=== PATIENT | male | born 1990 | race Caucasian/White ===

== ENCOUNTER 2016-06-24 01:15 | Emergency (ER) | payer OTHER ==
[~2016-06-24] VITALS: Ht 188 cm; Wt 85.9 kg
[2016-06-24 01:18] VITALS: TEMP 37.1; O2SAT 96; Ht 188 cm; Wt 85.9 kg
[2016-06-24 02:07] LABS: BUN/CREATININE RATIO 15.9 (10-20); CALCIUM 8.5 mg/dl (8.5-10.1); CREATININE 0.94 mg/dl (0.60-1.40); POTASSIUM 3.4 mmol/L (3.5-5.1)
[2016-06-24 06:31] VITALS: BP 117/83; PULSE 81; O2SAT 97
--- NOTE | 2016-06-27 19:30 | EMERGENCY ROOM VISIT NOTE ---
ED Visit Note First contact with patient: 01:18 CHIEF COMPLAINT: Altered mental status from Alcohol overdose HISTORY OF PRESENT ILLNESS: This 25-year-old male patient presents to the emergency department via ambulance for evaluation of altered mental status, presumably from alcohol intoxication. The patient was evidently on a local [place] for about one hour. The patient did not disembark from the bus, and the business team leader became concerned. EMS was contacted, the patient now presents to the emergency room for evaluation. He does admit to drinking alcohol tonight. No drug use or pills. He does not report pain or injury. REVIEW OF SYSTEMS: Review of systems was somewhat limited secondary to patient' s presumed alcohol intoxication status. Review of systems was performed to the best of our ability and reperformed as the patient began to sober up. All other systems were reviewed and are negative. ALLERGIES: See EMR MEDICATIONS: See EMR PMH: No chronic medical disease SOCIAL HISTORY: Student and lives locally PHYSICAL EXAM VITALS: Vitals are noted on the nurse's note and reviewed by myself. Vital signs stable. GENERAL: White male, who is in no acute distress and resting comfortably. Patient is visibly altered and smells of alcohol. HEAD: Normocephalic atraumatic. EARS: External ear normal. External auditory canals clear, tympanic membranes pearly torres without erythema or effusion bilaterally. EYES: Pupils equal round and reactive to light and accommodation. Conjunctivae without injection, sclerae without icterus. Extraocular movements intact. NOSE: Patent, turbinates without inflammation or discharge. MOUTH: Mucous membranes moist. Tonsils are not enlarged. Pharynx without erythema, blood, vomitus, or exudate. Uvula midline. Airway patent. NECK: Supple without nuchal rigidity. No lymphadenopathy. Cervical spine is nontender. HEART: Regular rate and rhythm without murmurs gallops or rubs. LUNGS: Clear to auscultation bilaterally without wheezes, rales or rhonchi. No retractions or accessory muscle use. ABDOMEN: Positive normal bowel sounds x 4. Soft, nontender, without masses or organomegaly. No guarding or rebound tenderness. MUSCULOSKELETAL: No muscle atrophy, erythema, or edema noted. Gross motor function intact to all extremities. NEURO: Patient was alert to person but not place or time. They appear with altered mental status. SKIN: The skin was without rashes, erythema, edema, or bruising. No Tenting of the skin. EMERGENCY DEPARTMENT COURSE: Physical exam and history was performed. Nursing notes and EMR were reviewed. The patient appears to be altered on my examination. I suspect this is from an alcohol overdose. Conservative care measures and aspiration precautions were instituted. The patient was placed on child monitor and watched during the patient's stay. The patient was placed in a prone position. Blood work was obtained and was reviewed. The patient's blood alcohol level was 333. This appears to be the primary cause of the altered status. Patient was reevaluated multiple times throughout the course of their emergency department stay. Over time the patient did sober up and was able to talk, walk , and drink fluids without difficulty. The patient was felt stable for discharge home. The patient was given alcohol intoxication handouts. The patient was discharged home in stable condition with a sober ride. Differential diagnosis: Etiologies such as alcohol intoxication, metabolic, infection, hypoglycemia, electrolyte abnormalities, cardiac sources, intracerebral event, toxicologic, neurologic, as well as others were entertained. DIAGNOSIS: Acute alcohol intoxication Current/Historical Medications No Active Prescriptions or Reported Meds Allergies Coded Allergies: No Known Allergies (Unverified , 06/24/16) Vital Signs Date Time Temp Pulse Resp B/P Pulse Ox O2 Delivery O2 Flow Rate FiO2 06/24/16 06:31 81 16 117/83 97 06/24/16 05:33 111 14 95 Room Air 06/24/16 05:13 68 06/24/16 05:03 88 20 94 06/24/16 04:33 89 19 96 06/24/16 04:03 90 16 98 06/24/16 03:58 84 18 120/66 97 Room Air 06/24/16 03:52 114/53 06/24/16 03:50 83 18 98 06/24/16 03:20 92 20 97 06/24/16 03:00 108 18 97/45 100 Room Air 06/24/16 02:54 97/45 06/24/16 02:50 105 3 93 06/24/16 02:20 88 14 91 06/24/16 02:15 87 16 92 Room Air 06/24/16 01:58 125/103 06/24/16 01:45 87 21 95 06/24/16 01:35 108 06/24/16 01:28 119/83 1/28/17 01:26 Room Air 06/24/16 01:18 96 Room Air 06/24/16 01:18 37.1 115 15 153/86 96 Room Air Laboratory Results 06/24/16 01:36 Test 06/24/16 01:36 Anion Gap 11.0 mmol/L (3-11) Est Creatinine Clear Calc Drug Dose 142.2 ml/min Estimated GFR () 131.9 Estimated GFR (Non- 113.8 BUN/Creatinine Ratio 15.9 (10-20) Calcium Level 8.5 mg/dl (8.5-10.1) Ethyl Alcohol mg/dL 333.0 mg/dl (0-3) Departure Information Impression Primary Impression: Alcohol intoxication Dispostion Home / Self-Care Condition GOOD Prescriptions No Active Prescriptions or Reported Meds Forms HOME CARE DOCUMENTATION FORM, IMPORTANT VISIT INFORMATION Patient Instructions Alcohol Intoxication - [facility], [facility], [facility]: [employer] Students and Alcohol Related Visits Additional Instructions You were seen and evaluated today on an emergency basis only. This is not a substitute for, or an effort to provide, complete comprehensive medical care. It is not possible to recognize and treat all injuries or illnesses in a single emergency department visit. Keep well-hydrated. Small sips of water over a long period of time are better tolerated than large amounts at once. Tylenol 1000 mg every 6 hours as needed for pain (Maximum 3000 mg Tylenol in 24 hr period). Follow up with family doctor as needed. You are welcome to return to the emergency department anytime with new, worsening, or concerning symptoms.
== END 2016-06-24 06:32 | disposition home or self-care (01) ==
LOC: EDBD 01:15 → C.EDB 01:16
DX: F10.129 Alcohol abuse with intoxication, unspecified (principal)

== ENCOUNTER 2017-07-12 17:41 | Emergency (ER) | payer OTHER ==
[~2017-07-12] VITALS: Ht 190.5 cm; Wt 92.1 kg
[2017-07-12 18:12] VITALS: TEMP 37.2; Ht 190.5 cm; Wt 92.1 kg
--- NOTE | 2017-07-12 21:14 | EMERGENCY ROOM VISIT NOTE ---
History First contact with patient: 20:48 Chief Complaint: CHEST PAIN Stated Complaint: CHEST PAINS Nursing Triage Summary: Patient ambulatory to triage with an upright and steady gait, states "I woke up this morning and my chest hurt. It hurt to breathe deep. We are traveling to [facility] right now. We were passing through here and stopping to get food but my chest is hurting really bad. I get a really sharp pain in the center of my chest, toward the right, when I take a deep breath. My right shoulder was hurting but it isn't right now." Patient reports traveling in a car for about 3.5 hours so far. History of Present Illness The patient is a 26 year old male who presents to the Emergency Room with complaints of chest pain that started this morning. The patient states that he developed pressure-like pain in the middle of his chest from the time he woke up this morning and has gotten worse. Pain is worse on deep inspiration with intermittent radiation to his right shoulder. Pain is about a 5/10 at rest and 8/10 on deep inspiration. Denies any fevers or chills, coughing. Denies any shortness of breath, palpitations, lightheadedness or dizziness. Denies any history of asthma, denies smoking, alcohol use or illicit drug use. No significant family history of heart disease or PE/DVT. He has been traveling to [place] and has been on the road for about 3-1/2 hours. Denies any calf tenderness or swelling, denies any long haul travels, recent immobilization. He lifts weights at gym but hasn't changed his regimen recently Source of History: patient Symptom Intensity: moderate Quality: stabbing Timing: intermittent Modifying Factors (Worsening): breathing Associated Symptoms: No fevers, No chills, No headache, No sorethroat, No cough, No nausea, No vomiting, No abdominal pain Review of Systems See HPI for pertinent positives & negatives. A total of 10 systems reviewed and were otherwise negative. Past Medical/Surgical History none Social History Smoking Status: Never Smoker Current/Historical Medications No Active Prescriptions or Reported Meds Physical Exam Vital Signs Date Time Temp Pulse Resp B/P (MAP) Pulse Ox O2 Delivery O2 Flow Rate FiO2 07/12/17 21:01 99 07/12/17 20:46 107 18 137/87 100 Room Air 07/12/17 18:16 98 2/15/18 18:12 37.2 100 16 122/61 97 Room Air Physical Exam GENERAL: Patient is in no acute distress. HEENT: No acute trauma, normocephalic atraumatic, mucous membranes moist, no nasal congestion, no scleral icterus. NECK: No stridor, no adenopathy, no meningismus, trachea is midline. LUNGS: Clear to auscultation bilaterally, no wheeze, no rhonchi, breath sounds equal. HEART: Without murmurs gallops or rubs, regular rate and rhythm. ABDOMEN: Soft, nontender, bowel sounds positive, no hernias, no peritonitis. EXTREMITIES: No cyanosis or edema, full range of motion of all the joints without pain or difficulty, no signs for acute trauma. NEUROLOGIC: Oriented x 3, no acute motor or sensory deficits, no focal weakness. SKIN: No rash, no jaundice, no diaphoresis. Medical Decision & Procedures Laboratory Results 07/12/17 20:51 Red Blood Count 4.80, Mean Corpuscular Volume 89.4, Mean Corpuscular Hemoglobin 31.9, Mean Corpuscular Hemoglobin Concent 35.7, Mean Platelet Volume 9.7, Neutrophils (%) (Auto) 76.3, Lymphocytes (%) (Auto) 13.9, Monocytes (%) (Auto) 9.1, Eosinophils (%) (Auto) 0.2, Basophils (%) (Auto) 0.2, Neutrophils # (Auto) 6.83, Lymphocytes # (Auto) 1.25, Monocytes # (Auto) 0.82, Eosinophils # (Auto) 0.02, Basophils # (Auto) 0.02 07/12/17 20:51 Test 07/12/17 20:51 07/12/17 21:14 White Blood Count 8.97 K/uL (4.8-10.8) Red Blood Count 4.80 M/uL (4.7-6.1) Hemoglobin 15.3 g/dL (14.0-18.0) Hematocrit 42.9 % (42-52) Mean Corpuscular Volume 89.4 fL (80-100) Mean Corpuscular Hemoglobin 31.9 pg (25-34) Mean Corpuscular Hemoglobin Concent 35.7 g/dl (32-36) Platelet Count 214 K/uL (130-400) Mean Platelet Volume 9.7 fL (7.4-10.4) Neutrophils (%) (Auto) 76.3 % Lymphocytes (%) (Auto) 13.9 % Monocytes (%) (Auto) 9.1 % Eosinophils (%) (Auto) 0.2 % Basophils (%) (Auto) 0.2 % Neutrophils # (Auto) 6.83 K/uL (1.4-6.5) Lymphocytes # (Auto) 1.25 K/uL (1.2-3.4) Monocytes # (Auto) 0.82 K/uL (0.11-0.59) Eosinophils # (Auto) 0.02 K/uL (0-0.5) Basophils # (Auto) 0.02 K/uL (0-0.2) RDW Standard Deviation 40.0 fL (36.4-46.3) RDW Coefficient of Variation 12.3 % (11.5-14.5) Immature Granulocyte % (Auto) 0.3 % Immature Granulocyte # (Auto) 0.03 K/uL (0.00-0.02) Anion Gap 9.0 mmol/L (3-11) Est Creatinine Clear Calc Drug Dose 126.1 ml/min Estimated GFR () 110.8 Estimated GFR (Non- 95.6 BUN/Creatinine Ratio 15.7 (10-20) Calcium Level 9.2 mg/dl (8.5-10.1) Total Bilirubin 0.8 mg/dl (0.2-1) Aspartate Amino Transf (AST/SGOT) 17 U/L (15-37) Alanine Aminotransferase (ALT/SGPT) 23 U/L (12-78) Alkaline Phosphatase 85 U/L (45-117) Troponin I < 0.015 ng/ml (0-0.045) Total Protein 8.0 gm/dl (6.4-8.2) Albumin 4.5 gm/dl (3.4-5.0) Globulin 3.5 gm/dl (2.5-4.0) Albumin/Globulin Ratio 1.3 (0.9-2) Bedside D-Dimer 65 ng/mlFEU (0-450) ECG Per My Interpretation Indication: chest pain Rhythm: normal sinus Findings: no acute ischemic change Medical Decision Prior records/ancillary studies reviewed. Triage Nursing notes reviewed. Additional history obtained from the patient. The patient's history was concerning for chest pain. Differential diagnosis: Etiologies such as cardiac ischemia, aortic dissection, pulmonary embolism, pneumonia, pneumothorax, musculoskeletal, infections, pericarditis, myocarditis , esophageal rupture, gastrointestinal, as well as others were entertained. Physical examination: As above. ER treatment provided: CBC, CMP, troponin, CXR and D-dimer were ordered On reassessment the patient felt better. Diagnostic interpretation by me: The electrocardiogram was negative for pathologic change. The labs were unremarkable Imaging studies: Chest x-ray as above By the evaluation outlined above emergent etiologies such as cardiac ischemia, aortic dissection, pulmonary embolism, pneumonia, pneumothorax, infections, pericarditis, myocarditis, gastrointestinal, as well as others were deemed relatively unlikely. The patient was informed about the findings as listed above. All questions were answered and he was pleased with the treatment. Return instructions were outlined and the patient was discharged in stable condition. Outpatient prescription management: ibuprofen 800 mg TID Referral: The patient was referred back to his primary care physician for follow-up in 2 to 3 days for a recheck of the current condition. 26-year-old male with no significant past medical history presented with precordial chest pain that started this morning worse with deep inspiration. Vital signs revealed tachycardia but were otherwise stable. EKG was unremarkable and labs were unremarkable. Chest x-ray was negative. It is likely his chest pain is secondary to costochondritis and he was given 30 mg IV Toradol for pain relief. He was recommended to use 800 mg ibuprofen every 8 hours as needed . He was discharged in stable condition and was commenced follow up with his PCP in the next few days or return to the ER if he develops worsening chest pain, shortness of breath or palpitations. Impression Primary Impression: Substernal precordial chest pain Departure Information Referrals No Doctor, Assigned (PCP) Patient Instructions My [facility] Resident Tracking Resident Involvement: Resident Care Provided Care Provided: Adult ED
[2017-07-12 21:22] LABS: BASO % 0.2 %; BASO ABS # 0.02 K/uL (0-0.2); EOS % 0.2 %; EOS ABS # 0.02 K/uL (0-0.5); HEMATOCRIT 42.9 % (42-52); HEMOGLOBIN 15.3 g/dL (14.0-18.0); IG# 0.03 K/uL (0.00-0.02); LYMPH % 13.9 %; LYMPH ABS # 1.25 K/uL (1.2-3.4); MEAN CELL VOLUME 89.4 fL (80-100); MEAN CORPUSCULAR HEMOGLOBIN 31.9 pg (25-34); MEAN CORPUSCULAR HGB CONC 35.7 g/dl (32-36); MEAN PLATELET VOLUME 9.7 fL (7.4-10.4); MONO % 9.1 %; MONO ABS # 0.82 K/uL (0.11-0.59); NEUT % 76.3 %; NEUT ABS # 6.83 K/uL (1.4-6.5); PLATELET COUNT 214 K/uL (130-400); RED CELL DISTRIBUTION WIDTH CV 12.3 % (11.5-14.5); WHITE BLOOD COUNT 8.97 K/uL (4.8-10.8)
[2017-07-12 21:29] LABS: ALBUMIN 4.5 gm/dl (3.4-5.0); ALT/SGPT 23 U/L (12-78); BLOOD UREA NITROGEN 17 mg/dl (7-18); CALCIUM 9.2 mg/dl (8.5-10.1); CARBON DIOXIDE 26 mmol/L (21-32); CREATININE 1.08 mg/dl (0.60-1.40); GLUCOSE 94 mg/dl (70-99); SODIUM 137 mmol/L (136-145)
[2017-07-12 21:33] LABS: ALKALINE PHOSPHATASE 85 U/L (45-117); AST/SGOT 17 U/L (15-37)
[2017-07-12] MEDS ORDERED: KETOROLAC TROMETHAMINE 30 MG/ML VIAL IV STA (21:40)
[2017-07-12] MEDS ORDERED: IBUP-103 PO (21:57)
[2017-07-12 22:24] VITALS: BP 126/84; PULSE 95; O2SAT 100
--- NOTE | 2017-07-12 22:27 | DIAGNOSTIC IMAGING REPORT ---
CHEST 2 VIEWS ROUTINE HISTORY: Mid sternal Chest pain with deep breathing COMPARISON: None. FINDINGS: The lungs are clear. Cardiac silhouette is normal in size. No pleural effusions. No pneumothorax. IMPRESSION: No acute process. Electronically signed by: Frank Cerna M.D. 07/12/2017 10:26 PM Dictated Date/Time: 07/12/2017 10:25 PM
--- NOTE | 2017-07-12 23:51 | EMERGENCY ROOM VISIT NOTE ---
History Report prepared by Chaitanya: Grayson Coburn Under the Supervision of: Dr. Victor Manuel Henry D.O. First contact with patient: 20:48 Chief Complaint: CHEST PAIN Stated Complaint: CHEST PAINS Nursing Triage Summary: Patient ambulatory to triage with an upright and steady gait, states "I woke up this morning and my chest hurt. It hurt to breathe deep. We are traveling to [facility] right now. We were passing through here and stopping to get food but my chest is hurting really bad. I get a really sharp pain in the center of my chest, toward the right, when I take a deep breath. My right shoulder was hurting but it isn't right now." Patient reports traveling in a car for about 3.5 hours so far. History of Present Illness The patient is a 26 year old male who presents to the Emergency Room with complaints of constant middle chest pain beginning this morning. The patient states that his pain worsens when he takes a deep breath, and that it occasionally radiates to his right shoulder. He denies any fever, SOB, and cough. He notes that he has not history of asthma and has no family history of DVT or heart disease. He rates his pain as a 5/10 normally, and as an 8/10 when he takes a deep breath. Source of History: patient Onset: this morning Position: chest Symptom Intensity: 5/10 normally, 8/10 when he takes a deep breath Timing: constant Modifying Factors (Worsening): breathing (deep breathing) Associated Symptoms: + fevers, No cough, No SOB Note: He also complains of right shoulder pain. Review of Systems See HPI for pertinent positives & negatives. A total of 10 systems reviewed and were otherwise negative. Past Medical & Surgical Medical Problems: (1) No chronic problems Family History No pertinent family history stated. Social History Smoking Status: Never Smoker Marital Status: single Occupation Status: employed Current/Historical Medications Scheduled PRN Ibuprofen Tab (Advil), 400 MG PO TID PRN for Pain Allergies Coded Allergies: No Known Allergies (Unverified , 07/12/17) Physical Exam Vital Signs Date Time Temp Pulse Resp B/P (MAP) Pulse Ox O2 Delivery O2 Flow Rate FiO2 07/12/17 22:24 95 18 126/84 100 07/12/17 21:01 99 07/12/17 20:46 107 18 137/87 100 Room Air 07/12/17 18:16 98 07/12/17 18:12 37.2 100 16 122/61 97 Room Air Physical Exam CONSTITUTIONAL/VITAL SIGNS: Reviewed / noted above. GENERAL: Non-toxic in appearance. INTEGUMENTARY: Warm, dry, and [place]. HEAD: Normocephalic. EYES: without scleral icterus or trauma. ENT/OROPHARYNX: clear and moist. LYMPHADENOPATHY/NECK: Is supple without lymphadenopathy or meningismus. RESPIRATORY: Lungs clear and equal. CARDIOVASCULAR: Regular rate and rhythm. GI/ABDOMEN: Soft and nontender. No organomegaly or pulsatile mass. No rebound or guarding. Normal bowel sounds. EXTREMITIES: Warm and well perfused. BACK: No CVA tenderness. NEUROLOGICAL: Intact without focal deficits. PSYCHIATRIC: normal affect. MUSCULOSKELETAL: Normally developed with good muscle tone. Medical Decision & Procedures ER Provider Diagnostic Interpretation: Radiology results as stated below per my review and radiologist interpretation: CHEST 2 VIEWS ROUTINE FINDINGS: The lungs are clear. Cardiac silhouette is normal in size. No pleural effusions. No pneumothorax. IMPRESSION: No acute process. Electronically signed by: Frank Cerna M.D. 07/12/2017 10:26 PM Laboratory Results 07/12/17 20:51 Red Blood Count 4.80, Mean Corpuscular Volume 89.4, Mean Corpuscular Hemoglobin 31.9, Mean Corpuscular Hemoglobin Concent 35.7, Mean Platelet Volume 9.7, Neutrophils (%) (Auto) 76.3, Lymphocytes (%) (Auto) 13.9, Monocytes (%) (Auto) 9.1, Eosinophils (%) (Auto) 0.2, Basophils (%) (Auto) 0.2, Neutrophils # (Auto) 6.83, Lymphocytes # (Auto) 1.25, Monocytes # (Auto) 0.82, Eosinophils # (Auto) 0.02, Basophils # (Auto) 0.02 07/12/17 20:51 Test 07/12/17 20:51 07/12/17 21:14 White Blood Count 8.97 K/uL (4.8-10.8) Red Blood Count 4.80 M/uL (4.7-6.1) Hemoglobin 15.3 g/dL (14.0-18.0) Hematocrit 42.9 % (42-52) Mean Corpuscular Volume 89.4 fL (80-100) Mean Corpuscular Hemoglobin 31.9 pg (25-34) Mean Corpuscular Hemoglobin Concent 35.7 g/dl (32-36) Platelet Count 214 K/uL (130-400) Mean Platelet Volume 9.7 fL (7.4-10.4) Neutrophils (%) (Auto) 76.3 % Lymphocytes (%) (Auto) 13.9 % Monocytes (%) (Auto) 9.1 % Eosinophils (%) (Auto) 0.2 % Basophils (%) (Auto) 0.2 % Neutrophils # (Auto) 6.83 K/uL (1.4-6.5) Lymphocytes # (Auto) 1.25 K/uL (1.2-3.4) Monocytes # (Auto) 0.82 K/uL (0.11-0.59) Eosinophils # (Auto) 0.02 K/uL (0-0.5) Basophils # (Auto) 0.02 K/uL (0-0.2) RDW Standard Deviation 40.0 fL (36.4-46.3) RDW Coefficient of Variation 12.3 % (11.5-14.5) Immature Granulocyte % (Auto) 0.3 % Immature Granulocyte # (Auto) 0.03 K/uL (0.00-0.02) Anion Gap 9.0 mmol/L (3-11) Est Creatinine Clear Calc Drug Dose 126.1 ml/min Estimated GFR () 110.8 Estimated GFR (Non- 95.6 BUN/Creatinine Ratio 15.7 (10-20) Calcium Level 9.2 mg/dl (8.5-10.1) Total Bilirubin 0.8 mg/dl (0.2-1) Aspartate Amino Transf (AST/SGOT) 17 U/L (15-37) Alanine Aminotransferase (ALT/SGPT) 23 U/L (12-78) Alkaline Phosphatase 85 U/L (45-117) Troponin I < 0.015 ng/ml (0-0.045) Total Protein 8.0 gm/dl (6.4-8.2) Albumin 4.5 gm/dl (3.4-5.0) Globulin 3.5 gm/dl (2.5-4.0) Albumin/Globulin Ratio 1.3 (0.9-2) Bedside D-Dimer 65 ng/mlFEU (0-450) Laboratory results as stated above per my review. Medications Administered Medications (Trade) Dose Ordered Sig/Kendal Route Start Time Stop Time Status Last Admin Dose Admin Ketorolac Tromethamine (Toradol Inj) 30 mg NOW STAT IV 07/12/17 21:40 07/12/17 21:42 DC 07/12/17 21:52 30 MG ED Course 2134: Previous medical records were reviewed. The patient was evaluated in room C9. A complete history and physical examination was performed. 2139: Toradol Inj 30mg IV 2207: On reevaluation, the patient is stable. I discussed the results and findings with the patient. He verbalized agreement of the treatment plan. The patient was discharged home. Medical Decision the differential was considered includes acute myocardial infarction, acute coronary syndrome, myocarditis, pericarditis, pericardial effusions /tamponade, esophageal perforation, thoracic aortic dissection, pulmonary embolism, pneumonia, pneumothorax, pancreatitis, shingles, acute cholecystitis, perforated abdominal viscus. This is a 26-year-old male who presents to the ED with a chief complaint of chest pain. The patient states that he awoke this morning with the pain. He states it seems to be worse with a deep breath. It seemed to get worse prior to his arrival here. The patient's vital signs here were normal other than a slight tachycardia. His physical exam was unremarkable. He does report lifting weights recently. The patient's CBC was normal, d-dimer was negative, troponin was negative, complete metabolic panel was normal and an EKG shows a normal sinus rhythm without ischemic changes. The patient was told the results of the test. He is felt to be stable for discharge. The patient was seen in coordination with the resident. Blood Pressure Screening Patient's blood pressure: Elevated blood pressure Blood pressure disposition: Elevated BP felt to be situational Impression Primary Impression: Precordial chest pain Scribe Attestation The scribe's documentation has been prepared under my direction and personally reviewed by me in its entirety. I confirm that the note above accurately reflects all work, treatment, procedures, and medical decision making performed by me. Departure Information Dispostion Home / Self-Care Forms HOME CARE DOCUMENTATION FORM, IMPORTANT VISIT INFORMATION Patient Instructions My [facility] Additional Instructions You have been examined and treated today on an emergency basis only. This is not a substitute for, or an effort to provide, complete comprehensive medical care. It is impossible to recognize and treat all injuries or illnesses in a single emergency department visit. It is therefore important that you follow up closely with your physician. Call as soon as possible for an appointment. Return for worsening symptoms or if you develop any shortness of breath, chest pain, palpitations or any other concerning symptoms. _ You may use ibuprofen 800 mg three times/day as needed for pain relief - Please follow with your PCP in the next 2 few days
== END 2017-07-12 22:26 | disposition home or self-care (01) ==
LOC: C.EDB 17:42 → C.EDC 22:26
DX: R07.2 Precordial pain (principal)